=== PATIENT | female | born 1955 | race Caucasian/White ===

== ENCOUNTER 2017-12-27 16:43 | Outpatient (CLI) | payer OTHER ==
[~2017-12-27 16:43] MED LIST: Iopamidol 370 76% 100 ML VIAL ONE
== END 2017-12-27 16:44 | disposition home or self-care (01) ==
LOC: CT 16:43
PROVIDERS: ATTEND Internal Medicine Cardiovascular Disease
DX: R94.39 Abnormal result of other cardiovascular function study (principal)
CPT/HCPCS: 75574

== ENCOUNTER 2025-10-15 14:54 | Outpatient (CLI) | payer MEDICARE | END 2025-10-15 14:55 | disposition home or self-care (01) | LOC: SCSBT 14:54 | PROVIDERS: ATTEND Family Medicine | DX: Z13.820 Encounter for screening for osteoporosis (principal); M85.89 Other specified disorders of bone density and structure, multiple sites | CPT/HCPCS: 77080 ==